=== PATIENT | male | born 1975 | race Caucasian/White ===

== ENCOUNTER 2019-11-28 17:51 | Emergency (ER) | payer OTHER, MEDICAID ==
[~2019-11-28] VITALS: Ht 167.6 cm; Wt 55.3 kg
--- NOTE | 2019-11-28 17:51 | NUR ---
PATIENT BIB [facility]. TO BED 8.
[2019-11-28 17:55] VITALS: BP 99/49
--- NOTE | 2019-11-28 17:55 | NUR ---
44 YEAR OLD MALE BIBA FROM [facility] FOR LOW BLOOD PRESSURE AND LOW BLOOD SUGAR. PER EMS PT HAD A BS OF 553 AND BP OF 80/60 AT 1130AM. PT PRESENTS WITH BLOOD SUGAR 131. BP 99/49, HR 95. SPO2 98% ON 4L NC. PT AOX1 TO NAME (BASELINE PER EMS), OTHERWISE NONVERBAL. PT PRESENTS WITH G TUBE, SITE CDI. PT HAS LEFT SIDE DIALYSIS CATHETER. PT HAS CONTRACTURES ON BOTH ARM EXTREMITIES. PT ALERT AND AWAKE, BREATHING EVEN AND UNLABORED, SKIN WARM AND DRY. BED IN LOWEST POSITION, LOCKED, BED RAIL UPX2. SEIZURE PRECAUTIONS INITIATED. PMH - HTN, DM2, SEIZURE, ESRD (//FRIDAY), ANEMIA, HYPERLIPID, CONTRACTURES ALLERGIES - NKA
--- NOTE | 2019-11-28 18:08 | NUR ---
Aida jones in [facility] - 11/28/19 at 1808 by [facility] AT BEDSIDE.
--- NOTE | 2019-11-28 18:15 | NUR ---
ATTEMPTED TO GET IV ACCESS 3 TIMES, ANOTHER RN WILL TRY
--- NOTE | 2019-11-28 18:22 | NUR ---
SECOND RN AT BEDSIDE TO ATTEMPT IV ACCESS
[2019-11-28] MEDS ORDERED: NACL 0.9% 1,000 ML IV ONE (18:42)
[2019-11-28 19:12] LABS: BASOPHILS # (AUTO) 0.2 K/uL (0.00-0.22); BASOPHILS % (AUTO) 1.3 % (0.0-2.0); EOSINOPHILS # (AUTO) 0.5 K/uL (0-0.4); HEMATOCRIT 31.1 % (36-52); HEMOGLOBIN 9.7 g/dL (12.0-18.0); LYMPHOCYTES # (AUTO) 1.7 K/uL (2.0-11.5); LYMPHOCYTES % (AUTO) 11.2 % (20.5-51.1); MEAN CORPUSCULAR HEMOGLOBIN 31 pg (27-31); MEAN CORPUSCULAR HGB CONC 31 g/dL (33-37); MEAN CORPUSCULAR VOLUME 99.5 fL (80-94); MONOCYTES # (AUTO) 0.6 K/uL (0.8-1.0); MONOCYTES % (AUTO) 3.9 % (1.7-9.3); NEUTROPHILS # (AUTO) 12.5 K/uL (1.8-7.7); NEUTROPHILS % (AUTO) 80.6 % (42.2-75.2); PLATELET COUNT (AUTO) 533 K/uL (140-450); RED BLOOD CELL COUNT(AUTO) 3.13 MIL/uL (4.20-6.10); RED CELL DISTRIBUTION WIDTH 14.2 % (11.6-13.7); WHITE BLOOD COUNT (AUTO) 15.5 K/uL (4.8-10.8)
--- NOTE | 2019-11-28 19:29 | NUR ---
REPORT GIVEN TO BASIM PECK, TRANSFER OF CARE AT THIS TIME
[2019-11-28 19:41] LABS: ALBUMIN 3.1 g/dL (3.4-5.0); ANION GAP 17.9 (8-16); CARBON DIOXIDE 27.5 mmol/L (21-32); POTASSIUM 4.4 mmol/L (3.5-5.1); TOTAL BILIRUBIN 0.4 mg/dL (0.0-1.0)
[2019-11-28 19:47] LABS: CREATININE 6.3 mg/dL (0.6-1.3)
[2019-11-28 19:58] LABS: PROTHROMBIN TIME 9.2 secs (10.8-13.4)
--- NOTE | 2019-11-28 20:53 | NUR ---
Pt resting with NAD noted at this time. VSS, steril straight cath preformrd for urine collection.
--- NOTE | 2019-11-28 20:54 | NUR ---
ARNULFO [place] [phone]
--- NOTE | 2019-11-28 21:03 | NUR ---
Aida jones in [facility] - 11/28/19 at 2113 by VIANCA PT TAKEN TO BED 8
--- NOTE | 2019-11-28 21:06 | NUR ---
Pt to CT
[2019-11-28 21:07] LABS: APPEARANCE,URINE CLEAR (CLEAR); BILIRUBIN,URINE 1+ (NEGATIVE); BLOOD, URINE 1+ (NEGATIVE); COLOR,URINE AMBER (YELLOW); UGLUCOSE NEGATIVE (NEGATIVE)
[2019-11-28 21:08] LABS: LEUKOCYTE ESTERASE ,URINE NEGATIVE (NEGATIVE); NITRITE, URINE NEGATIVE (NEGATIVE)
--- NOTE | 2019-11-28 21:13 | NUR ---
PT RETURN FROM CT
[2019-11-28 21:14] LABS: RBC,URINE 0-5 /HPF (0-5); URINE AMORPHOUS URATE 1+ /HPF (None Seen); WBC,URINE 0-5 /HPF (0-5)
--- NOTE | 2019-11-28 21:14 | NUR ---
Pt returned from CT
--- NOTE | 2019-11-28 22:54 | NUR ---
Report to Jenni PECK at [facility]. Awaiting transport.
--- NOTE | 2019-11-28 23:59 | NUR ---
No acute change3 to pt condition. Awaiting transport back to [facility].
--- NOTE | 2019-11-29 03:29 | NUR ---
Pt resting with eyes closed, VSS, awaiting transport.
--- NOTE | 2019-11-29 04:57 | NUR ---
[facility] AT BEDSIDE
[2019-11-29 05:05] VITALS: BP 103/41
--- NOTE | 2019-11-29 05:07 | NUR ---
[facility] at bedside for transfer to [facility]. Patient discharged with v/s stable. Written and verbal after care instructions given and explained. Patient verbalized understanding. Ambulance Transport with to retirement. All questions addressed prior to discharge. Advised to follow up with PMD.
--- NOTE | 2019-12-02 08:36 | NUR ---
LATE ENTRY- NS 0.9% DISCONTINUED AT 0507.
== END 2019-11-29 05:17 | disposition home or self-care (01) ==
LOC: MED 17:51
DX: E86.0 Dehydration (principal); K59.00 Constipation, unspecified; E11.65 Type 2 diabetes mellitus with hyperglycemia; E11.22 Type 2 diabetes mellitus with diabetic chronic kidney disease; I12.0 Hypertensive chronic kidney disease with stage 5 chronic kidney disease or end stage renal disease; N18.6 End stage renal disease; D64.9 Anemia, unspecified; E78.5 Hyperlipidemia, unspecified; Z99.2 Dependence on renal dialysis
CPT/HCPCS: 36415; 71045; 74176; 80053; 81001; 83605; 83690; 83880; 84484; 85025; 85610; 87040; 87086; 93005; 96360; 96361; 99285; J7030; Q0092; 99284